=== PATIENT | female | born 1960 | race Caucasian/White ===

== ENCOUNTER 2021-06-29 15:10 | Emergency (ER) | payer BC ==
[~2021-06-29] VITALS: Ht 165.1 cm; Wt 85.0 kg
[2021-06-29] MEDS ORDERED: ibuprofen 200mg tablet PO ONE (15:40)
[2021-06-29] MEDS ORDERED: normal saline 1000ML IV soln IV ONE (16:20)
--- NOTE | 2021-06-29 16:44 | NUR ---
THERE ARE NO ROOMS IN ER AVAILABLE, STARTED TREATMENT IN [facility], PT IS RESTING QUIETLY ON CHAIR 1ST LITER NS INFUSING W/O, BLOOD HAS BEEN DRAWN, EKG AND CXRAY DONE
[2021-06-29 17:06] LABS: BASOPHILS % (AUTO) 0.1 % (0-1); EOSINOPHILS % (AUTO) 0 % (0-6); HEMATOCRIT 38.8 % (35.0-45.0); HEMOGLOBIN 13.1 g/dl (12.0-16.0); LYMPHOCYTES # (AUTO) 0.3 X10'3 (1.1-4.8); MEAN CORPUSCULAR HGB CONC 33.9 g/dL (33.0-36.5); MEAN CORPUSCULAR VOLUME 85.5 FL (78-98); MEAN PLATELET VOLUME 7.4 FL (7.4-10.4); MONOCYTES # (AUTO) 0.2 X10'3 (0-0.9); MONOCYTES % (AUTO) 4.8 % (2-12); NEUTROPHILS # (AUTO) 4.6 X10'3 (1.8-7.7); NEUTROPHILS % (AUTO) 89.1 % (42-75); PLATELET COUNT 287 X10'3 (140-440); RED BLOOD COUNT 4.53 X10'6 (4.20-5.60); RED CELL DISTRIBUTION WIDTH 13.6 % (11.5-14.5); WHITE BLOOD COUNT 5.2 X10'3 (4.5-11.0)
[2021-06-29] MEDS ORDERED: dexamethasone sod phosphate 10mg/ml inj IV STA (17:17)
[2021-06-29 17:22] LABS: ALANINE AMINOTRANSFERASE 31 U/L (12-78); ALBUMIN 3.3 G/DL (3.4-5.0); ALBUMIN/GLOBULIN RATIO 0.8 (1.1-1.5); ALKALINE PHOSPHATASE 86 IU/L (46-116); ANION GAP 9 (8-16); ASPARTATE AMINO TRANSFERASE 31 U/L (10-37); BILIRUBIN,TOTAL 0.4 MG/DL (0.1-1.0); BLOOD UREA NITROGEN 8 MG/DL (7-18); BUN/CREATININE RATIO 11.3 (6.6-38.0); CALCIUM 8.2 MG/DL (8.5-10.1); CHLORIDE 97 MMOL/L (99-107); CREATININE 0.71 MG/DL (0.40-0.90); GLUCOSE 194 MG/DL (70-104); POTASSIUM 3.8 MMOL/L (3.5-5.1); SODIUM 133 MMOL/L (135-145); TOTAL PROTEIN 7.3 G/DL (6.4-8.2); eGFR 83 ML/MIN
[2021-06-29] MEDS ORDERED: ALBU6.7H9 INH (18:06)
[2021-06-29] MEDS ORDERED: DEC4T PO (18:06)
[2021-06-29] MEDS ORDERED: ondansetron/PF 4mg/2ml inj IV ONE (18:35)
[2021-06-29 18:51] VITALS: BP 132/50
== END 2021-06-29 19:12 | disposition home or self-care (01) ==
LOC: ER 15:11
DX: U07.1 COVID-19 (principal); R50.9 Fever, unspecified; R05 Cough; J32.9 Chronic sinusitis, unspecified; R09.81 Nasal congestion; R51.9 Headache, unspecified; Z79.899 Other long term (current) drug therapy
CPT/HCPCS: 36415; 71045; 80053; 83605; 84145; 85025; 87040; 87635; 93005; 96374; 96375; 99285; C9803; J1100; J2405; J7030